=== PATIENT | female | born 1940 | race Caucasian/White ===

== ENCOUNTER 2019-03-26 12:30 | Emergency (ER) | payer MEDICARE, MEDICAID, SELFPAY | END 2019-03-26 14:23 | disposition home or self-care (01) | PROVIDERS: Emergency Provider Emergency Medicine; Visit Provider Emergency Medicine | DX: S86.911A Strain of unspecified muscle(s) and tendon(s) at lower leg level, right leg, initial encounter (principal); E78.5 Hyperlipidemia, unspecified; H35.30 Unspecified macular degeneration; J43.9 Emphysema, unspecified; K21.9 Gastro-esophageal reflux disease without esophagitis; K58.9 Irritable bowel syndrome, unspecified; Z87.442 Personal history of urinary calculi; M81.0 Age-related osteoporosis without current pathological fracture; Z96.652 Presence of left artificial knee joint; Z72.0 Tobacco use; I67.2 Cerebral atherosclerosis; W17.89XA Other fall from one level to another, initial encounter; M16.0 Bilateral primary osteoarthritis of hip; M17.11 Unilateral primary osteoarthritis, right knee; M85.861 Other specified disorders of bone density and structure, right lower leg; M11.261 Other chondrocalcinosis, right knee | CPT/HCPCS: 36415; 70450; 73502; 73562; 80048; 85025; 85610; 85730; 96360; 99284; A9270; J7040 ==

== ENCOUNTER → 2021-10-31 08:26 | Outpatient (CLI) | payer OTHER, SELFPAY ==
[2021-10-31 18:23] LABS: SARS-CoV-2 RNA PCR Negative
== END ==
PROVIDERS: PCP Internal Medicine; Visit Provider Internal Medicine
DX: B34.9 Viral infection, unspecified (principal); Z20.822 Contact with and (suspected) exposure to COVID-19
CPT/HCPCS: C9803; U0003; U0005

== ENCOUNTER 2022-05-30 08:22 | Outpatient (CLI) | payer OTHER, SELFPAY ==
--- NOTE | ~2022-05-30 | NM_ITS ---
EXAMINATION: NM bone scan limited area DATE: 05/30/2022 12:52 INDICATION: Bilateral lower extremity pain. TECHNIQUE: 25 mCi Tc-99m HDP was administered intravenously. Delayed scintigrams of the pelvis and l ower extremities were obtained. 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 There is a total left knee arthroplasty with long femoral stem with i ncreased activity adjacent to the femoral component in the medial femoral condyle and tip of the femo ral stem. There is increased activity adjacent to the tibial component. There are foci of increased a ctivity in the feet without radiographic comparison, likely osteoarthritis. IMPRESSION: 1. Bilateral knee arthroplasties with adjacent increased activity, which is nonspecific and can be a normal finding. No periprosthetic lucencies on the radiographs to suggest loosening or infection. Reviewed, dictated and finalized at location A. IMPRESSION: 1. Bilateral knee arthroplasties with adjacent increased activity, which is non specific and can be a normal finding. No periprosthetic lucencies on the radiog raphs to suggest loosening or infection.
== END 2022-05-30 08:23 | disposition home or self-care (01) ==
PROVIDERS: PCP Registered Nurse; Visit Provider Orthopaedic Surgery
DX: M79.604 Pain in right leg (principal); M79.605 Pain in left leg
CPT/HCPCS: 78300; A9561

== ENCOUNTER 2022-07-09 10:31 | Outpatient (CLI) | payer OTHER, SELFPAY ==
--- NOTE | ~2022-07-09 | CT_ITS ---
EXAMINATION:CT diagnostic chest wo con DATE: 07/09/2022 10:54 INDICATION: Abnormal chest radiographs. TECHNIQUE: Computed tomography (CT) of the chest was performed without intravenous contrast. Automate d exposure control and iterative reconstruction technique were employed. The dose-length product (DLP ) was 154.51 mGy-cm. COMPARISON: Chest CT 01/27/2014 FINDINGS: There is mild emphysema. There is a 5.2 x 3.4 cm mass in superior segment left lower lobe. There is mild scarring at the lung apices. There are tree-in-bud opacities and small centrilobular no dules in the lower lobes, consistent with pneumonia. A calcified left lung nodule and calcified left hilar lymph nodes are consistent with old granulomatous disease. No pleural effusion. The heart size is normal. There are coronary artery calcifications. There are calcifications of aortic valve. No per icardial effusion. There is moderate thoracic spondylosis. IMPRESSION: 1. Mass in superior segment left lower lobe, consistent with primary bronchogenic carcinoma. Consider bronchoscopy. 2. Mild pneumonia in the lower lobes. 3. Mild emphysema. Reviewed, dictated and finalized at location A. IMPRESSION: 1. Mass in superior segment left lower lobe, consistent with primary bronchogen ic carcinoma. Consider bronchoscopy. 2. Mild pneumonia in the lower lobes. 3. Mild emphysema.
== END 2022-07-09 10:32 | disposition home or self-care (01) ==
PROVIDERS: PCP Registered Nurse; Visit Provider Registered Nurse
DX: R93.89 Abnormal findings on diagnostic imaging of other specified body structures (principal); J43.9 Emphysema, unspecified
CPT/HCPCS: 71250

== ENCOUNTER 2023-08-08 11:11 | Emergency (ER) | payer OTHER, SELFPAY ==
[2023-08-08 11:16] VITALS: BP 163/76; PULSE 107; RESP 16; TEMP 37.1; O2SAT 97
--- NOTE | 2023-08-08 12:03 | PC.NURSE ---
pt wanting to leave d/t wait time. daughter to transport home. pt agreeable to return if need be. iv removed prior to leaving the dept
== END 2023-08-08 12:03 | disposition left against medical advice (07) ==
LOC: ANHED 12:07
PROVIDERS: PCP Registered Nurse
DX: M54.50 Low back pain, unspecified (principal)
CPT/HCPCS: 99199